=== PATIENT | female | born 1940 | race Caucasian/White ===

== ENCOUNTER 2016-11-08 10:37 | Day surgery (SDC) | payer BC ==
[2016-11-02 14:28] VITALS: BMI 19.5
[2016-11-08 13:45] VITALS: TEMP 98.2
[2016-11-08] MEDS ORDERED: ACETAMINOPHEN 325 MG TABLET (FP) PO PRN (13:47)
[2016-11-08] MEDS ORDERED: ONDANSETRON 4 MG/2 ML VIAL IVPUSH PRN (13:47)
[2016-11-08] MEDS ORDERED: oxyCODONE HCL 5 MG TABLET PO PRN (13:47)
[2016-11-08 13:51] VITALS: BP 101/55; PULSE 65
[2016-11-08] MEDS ORDERED: LACTATED RINGERS SOLUTION 1,000 ML IV SCH (14:00)
--- NOTE | 2016-11-10 11:35 | OP ---
DATE OF OPERATION: 11/08/2016 PREOPERATIVE DIAGNOSIS: Right carpal tunnel syndrome. POSTOPERATIVE DIAGNOSIS: Right carpal tunnel syndrome. OPERATIVE PROCEDURE: Right carpal tunnel release. SURGEON: Ronal Rivera MD ANESTHESIA: Local with sedation. COMPLICATIONS: None. ESTIMATED BLOOD LOSS: Minimal. INDICATIONS FOR PROCEDURE: The patient is a 76-year-old female with the above findings, indicated for operative treatment. The risks, benefits, and alternatives were discussed with the patient at length, and proper informed consent was obtained. PROCEDURE: After proper identification of the patient and the correct operative site, the patient was brought to the operating room and placed supine on the operating table. Prominences were well padded. Sedation was given by the anesthesiologist; local anesthesia was given with 2% lidocaine. Right upper extremity was prepped and draped in the usual sterile fashion. A well-padded tourniquet was placed with a sterile prep. Esmarch bandage was used to exsanguinate the right upper extremity. A tourniquet was inflated to 250 mmHg. Longitudinal incision was made at the proximal aspect of the palm. Incision was taken sharply through the skin with blunt and sharp dissection through subcutaneous tissues. The palmar fascia was divided longitudinally. The transverse carpal ligament was divided longitudinally along with distal 4 cm of antebrachial fascia under direct visualization with loupe magnification. This provided complete release of the median nerve at the wrist. Wound was irrigated with saline and repaired with a 5-0 nylon suture. Sterile dressings were applied. The patient was reversed from sedation and brought to the recovery room in stable condition. She tolerated the procedure well. RONAL RIVERA M.D. [id number]
== END 2016-11-08 13:00 | disposition home or self-care (01) ==
LOC: FASU 10:37
PROVIDERS: ATTEND Orthopaedic Surgery Hand Surgery
PROC: 01N50ZZ Release Median Nerve, Open Approach (ICD-10-PCS; principal; 2016-11-08 11:50)
DX: G56.01 Carpal tunnel syndrome, right upper limb (principal)

== ENCOUNTER 2017-08-06 10:58 | Emergency (ER) | payer BC | END 2017-08-06 11:40 | disposition home or self-care (01) | LOC: FER 10:58 | PROC: 3E0234Z Introduction of Serum, Toxoid and Vaccine into Muscle, Percutaneous Approach (ICD-10-PCS; principal; 2017-08-06) | CPT/HCPCS: 90471; 90715; 99283-25 ==

== ENCOUNTER 2020-11-29 17:12 | Emergency (ER) | payer OTHER ==
[2020-11-29 17:27] VITALS: BP 174/79; PULSE 75; TEMP 97.9; BMI 19.7
== END 2020-11-29 21:13 | disposition left against medical advice (07) ==
LOC: JER 17:12
DX: H53.8 Other visual disturbances (principal)
CPT/HCPCS: 70450-TC; 71045-TC-FY; 99284-25

== ENCOUNTER 2022-01-25 04:24 | Day surgery (SDC) | payer OTHER ==
[2022-01-24 14:40] VITALS: BMI 19.7
[2022-01-25 10:35] VITALS: TEMP 98
[2022-01-25 11:17] VITALS: BP 147/68; PULSE 66; RESP 15
== END 2022-01-25 11:30 | disposition home or self-care (01) ==
LOC: JASU-ENDO 04:24
PROVIDERS: ATTEND Internal Medicine Gastroenterology
PROC: 0DBL8ZX Excision of Transverse Colon, Via Natural or Artificial Opening Endoscopic, Diagnostic (ICD-10-PCS; principal; 2022-01-25 10:00)
DX: R10.9 Unspecified abdominal pain (principal); D12.3 Benign neoplasm of transverse colon; K57.30 Diverticulosis of large intestine without perforation or abscess without bleeding; K63.89 Other specified diseases of intestine
CPT/HCPCS: 88305-TC

== ENCOUNTER 2023-09-27 11:52 | Emergency (ER) | payer OTHER ==
[2023-09-27 12:07] VITALS: RESP 16; TEMP 98.8; BMI 19.3
[2023-09-27 13:02] LABS: HEMATOCRIT 43.9 % (32.4-45.2); HEMOGLOBIN 14.3 G/dL (10.7-15.3); MCH 30.7 pg (25.7-33.7); MCHC 32.6 g/dl (32.0-36.0); MEAN CELL VOLUME 94.2 fl (80-96); MEAN PLT VOLUME 8.9 fl (7.5-11.1); PLATELET COUNT 172.9 10^3/uL (134-434); RBC 4.66 10^6/uL (3.60-5.2); RDW 14.5 % (11.6-15.6); WHITE BLOOD COUNT 4.7 10^3/uL (4.0-10.8)
[2023-09-27 13:04] LABS: INR 0.92 (0.83-1.09); PROTHROMBIN TIME (PATIENT) 10.5 SEC (9.7-13.0)
[2023-09-27 13:06] LABS: ACTIVATED PTT 33.2 SECONDS (25.2-36.5)
[2023-09-27 13:13] LABS: ALBUMIN 4.4 g/dl (3.4-5.0); BILIRUBIN,TOTAL 0.6 mg/dl (0.2-1); CALCIUM 9.5 mg/dl (8.5-10.1); CREATININE 0.8 mg/dl (0.6-1.3); MAGNESIUM 2.1 mg/dL (1.8-2.4); POTASSIUM 3.8 mmol/L (3.5-5.1); TOT PROT 6.4 g/dl (6.4-8.2)
[2023-09-27 13:20] LABS: PLATELET ESTIMATE ADEQUATE
[2023-09-27 13:32] VITALS: BP 160/82; PULSE 65
== END 2023-09-27 14:50 | disposition left against medical advice (07) ==
LOC: FER 11:52
DX: G45.9 Transient cerebral ischemic attack, unspecified (principal); R51.9 Headache, unspecified; H53.8 Other visual disturbances; R47.01 Aphasia
CPT/HCPCS: 36415; 70450-TC; 71045-TC-FY; 80053; 81003; 81015; 82550; 83036; 83735; 84484; 85027; 85610; 85730; 86850; 86900; 86901; 93005; 99285-25